=== PATIENT | male | born 1965 | race Caucasian/White ===

== ENCOUNTER → 2018-08-01 17:41 | Outpatient (CLI) | payer OTHER, SELFPAY ==
--- NOTE | 2018-08-01 17:52 | EKG12_ITS ---
Test Reason : PREOP Blood Pressure : / mmHG Vent. Rate : 057 BPM Atrial Rate : 057 BPM P-R Int : 146 ms QRS Dur : 092 ms QT Int : 420 ms P-R-T Axes : 074 073 062 degrees QTc Int : 408 ms Sinus bradycardia Incomplete right bundle branch block Borderline ECG No previous ECGs available Confirmed by WING BASURTO, ADRIANA ([id number]), graphics editor CHINYERE MCMAHON ([id number]) on 08/02/2018 10:34:36 AM Referred By: Cy Bautista Confirmed By:ADRIANA DIMAS MD
== END ==
PROVIDERS: Family Provider Family Medicine; PCP Family Medicine; Referring Provider Otolaryngology; Visit Provider Otolaryngology
DX: Z01.812 Encounter for preprocedural laboratory examination (principal)
CPT/HCPCS: 93005

== ENCOUNTER → 2018-08-06 15:13 | Outpatient (CLI) | payer OTHER, SELFPAY ==
--- NOTE | 2018-08-05 | UV_PTH ---
PATIENT: TAWNY WHELAN LOC: [facility] U#:[id number] AGE/SX: 60/M ROOM: RE08/06/[address]: Dr. Cy Bautista MD : [id number] BED: DIS: SPEC #: [id number] RECD: 08/06/18 15:13 STATUS: EDIL STEVE #: [id number] FARZAD: 08/05/18 00:[address]: Cy Bautista DEPT: SURGICAL PATHOLOGY RECD BY: Carlos Ko ENTERED: 08/07/18 08:43 SP TYPE: UVULA ZURDO DR: Dr. Finesse Braun MD [facility] Tissues: Uvula palatina Procedures: Surgery Specimen Level III HEADER OPERATION: Uvulectomy PRE-OP DIAGNOSIS: Uvula hypertrophy TISSUE SUBMITTED: Uvula MICROSCOPIC DIAGNOSIS Uvula, uvulectomy: Uvula, no pathologic diagnosis, clinically hypertrophy. SJ:jose 08/08/18 MICROSCOPIC DESCRIPTION Slides are reviewed. GROSS DESCRIPTION Received in fixative is one container labeled with the patient's name and designated uvula. The specimen consists of a conical piece of betancur mucosal tissue measuring 2.5 x 1 x 0.5 cm. The specimen is inked, bisected and submitted entirely in one cassette. / SJ:rg 08/07/18 TC:5 CPT: 64636
--- OUTSIDE RECORDS SUMMARY | 2018-09-22 23:01 | XMS RPT_ITS ---
:1965 Author Organization OHIP Care Team Providers Name Role Phone DARWIN MCKEON Attending Unavailable DARWIN MCKEON Referring Unavailable Cy Bautista Attending Unavailable Cy Bautista Referring Unavailable Darwin Mckeon Primary Care Unavailable Cy Bautista Attending Unavailable Cy Bautista Referring Unavailable Darwin Mckeon Primary Care Unavailable Luiz Escudero Attending Unavailable Cy Bautista Referring Unavailable PROBLEMS PROBLEMS DATE TYPE CONDITION / CODE ATTENDING STATUS SOURCE 08/09/2018 Unknown R00.1 - Bradycardia, Luiz Escudero Active [facility] unspecified / Community R00.1(ICD-10) Hospital Repository 01/10/2018 Active Encounter for Active [place] screening for [facility] malignant neoplasm [place] of prostate / Repository Z12.5(ICD-10) 01/10/2018 Active Encounter for Active [place] screening for [facility] diabetes mellitus / [place] Z13.1(ICD-10) Repository 01/10/2018 Active Encounter for Active [place] screening for [facility] cardiovascular [place] disorders / Repository Z13.6(ICD-10) 01/10/2018 Active Encounter for Active [facility] adult [facility] medical examination [place] without abnormal Repository findings / Z00.00(ICD-10) PROCEDURES PROCEDURES No Procedure Records FoundRESULTS RESULTS UVULA Observed: 08/05/2018 Status: F Source: [place] 12:00 AM [facility] REPOSITORY Patient: TAWNY WHELAN : 1965 (53/M) Acct Num: [id number] Phys: Cy Bautista MD Unit Num: [id number] Loc: LABSPEC Specimen: [id number] Received: 08/06/18 151 Spec Type: UVULA TISSUES 1 TISSUES: Uvula palatina GROSS DESCRIPTION Received in fixative is one container labeled with the patient's name and designated uvula. The specimen consists of a conical piece of betancur mucosal tissue measuring 2.5 x 1 x 0.5 cm. The specimen is inked, bisected and submitted entirely in one cassette. / SJ:jose 08/07/18 TC:5 CPT: 69088 HEADER OPERATION: Uvulectomy PRE-OP DIAGNOSIS: Uvula hypertrophy TISSUE SUBMITTED: Uvula MICROSCOPIC DESCRIPTION Slides are reviewed. MICROSCOPIC DIAGNOSIS Uvula, uvulectomy: Uvula, no pathologic diagnosis, clinically hypertrophy. SJ:jose 08/08/18 Signed Robert Conroy 08/08/18 <signature on file> Performed By: #### PUV #### [facility] [address] [place], [address] 12 LEAD ELECTROCARDIOGRAM Observed: 08/02/2018 Status: F Source: [place] 10:35 AM [facility] REPOSITORY [facility] Cardiovascular Services [address] [place] [address] 12 Lead EKG 08/01/18 1757 MR#: [id number] Acct: [id number] Name: TAWNY WHELAN Rep #: [id number] : 1965 53 From: Luiz Escudero MD Attending Dr: Cy Bautista MD Status: REG CLI Ordering Dr: Cy Bautista MD Date: 08/01/18 Location: [facility] Sex: M C Admitted: Test Reason : PREOP Blood Pressure : / mmHG Vent. Rate : 057 BPM Atrial Rate : 057 BPM P-R Int : 146 ms QRS Dur : 092 ms QT Int : 420 ms P-R-T Axes : 074 073 062 degrees QTc Int : 408 ms Sinus bradycardia Incomplete right bundle branch block Borderline ECG No previous ECGs available Confirmed by LUIZ ESCUDERO MD ([id number]), news videotape editor CHINYERE MCMAHON ([id number]) on 08/02/2018 10:34:36 AM Referred By: Cy Bautista Confirmed By:LUIZ ESCUDERO MD 08/02/18 1034 Date Luiz Escudero MD CC: Darwin Mckeon MD; Cy Bautista MD Signed PROGRESS Observed: 04/09/2018 Status: COMPLETED Source: [place] 5:56 PM [facility] REPOSITORY HNO ID: [id number] [facility]: [facility] Service: (none) Author Type: Nurse Practitioner Type: Progress Notes Filed: 04/09/2018 10:19 PM Note Text: Subjective HPI Tawny Whelan is a 53 year old male who presents with left lower back pain for the past 22 years. He states 2 days ago he unloaded some dirt from his pickup truck and has had worse pain the last 2 days. He states he typically has this occur once a year and in the past he has taken muscle relaxant medication and it seems to help. He rates his pain a 6/10 and states it is worse when he tries to lift his left leg into the car. He took ibuprofen at home which did not seem to help. He denies radiation of pain. He also expresses concern over his uvula which is larger and longer than normal. He has seen ENT for this who wanted to remove it surgically but his insurance would not pay for it. He is concerned he may have cancer and would like further testing done. He states the uvula makes him feel like he always has something stuck in his throat. Review of Systems Constitutional: Negative. Negative for fever. HENT: Negative for sore throat. Respiratory: Negative. Negative for cough and stridor. Cardiovascular: Negative. Genitourinary: Negative. Negative for dysuria, frequency and urgency. Skin: Negative. Negative for rash. BP 130/82 Pulse (!) 56 Temp 36.1 ?C (97 ?F) (Tympanic) Resp 16 Wt 77.1 kg (170 lb) BMI 23.06 kg/m? 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 citalopram (CELEXA) 20 mg tablet TAKE 1 TABLET ONCE DAILY FAMILY HISTORY Problem Relation Age of Onset - Heart Maternal Grandmother ID - Hypertension Mother - Lipids Mother - Lipids Brother - Heart Maternal Grandfather ID, open heart surgery - Heart Father stent placement - Stroke Maternal Grandmother - Diabetes Mother Social History Substance Use Topics - Smoking status: Never Smoker - Smokeless tobacco: Never Used - Alcohol use 1.5 oz/week 1 Cans of Beer (12oz) per week Objective Physical Exam Constitutional: He is well-developed, well-nourished, and in no distress. Cardiovascular: Normal rate, regular rhythm and normal heart sounds. Pulmonary/Chest: Effort normal and breath sounds normal. No stridor. No respiratory distress. He has no wheezes. Musculoskeletal: Lumbar back: He exhibits decreased range of motion, pain and spasm. He exhibits no tenderness, no bony tenderness, no swelling, no edema, no deformity and no laceration. Back: Lymphadenopathy: He has no cervical adenopathy. Neurological: He is alert. He has normal motor skills, normal strength and normal reflexes. He displays no weakness. Gait normal. Gait normal. Reflex Scores: Patellar reflexes are 2+ on the right side and 2+ on the left side. Skin: Skin is warm and dry. No rash noted. No erythema. Nursing note and vitals reviewed. ASSESSMENT/PLAN: 1. Acute left-sided low back pain without sciatica - ICD9: 724.2, ICD10: M54.5 (primary diagnosis) Lumbosacral sprain - Ice for localized tenderness - Medrol dose pack - Muscle relaxant- see orders - METHYLPREDNISOLONE 4 MG TABLETS IN A DOSE PACK - CYCLOBENZAPRINE 5 MG TABLET 2. Elongated uvula, acquired - ICD9: 528.9, ICD10: K13.79 - CONSULT TO ENT - Follow-up with your PCP in 3-5 days if symptoms have not improved or sooner if symptoms worsen - Discussed red flags and need for immediate medical evaluation if any occur. - Discussed supportive care treatment with fluids, rest and analgesia. - Discussed expected course of illness Alyssa Ramos APRN.CNP CNOV Observed: 04/09/2018 Status: COMPLETED Source: [place] 5:45 PM [facility] REPOSITORY Office Visit ([facility]) TAWNY WHELAN ([id number]) 1965 M Date Time Provider Department 04/09/18 5:45 PM ALYSSA RAMOS ([facility]) [facility] During your visit today, we recorded the following information about you: Temperature Pulse Respiration Blood pressure 97 degrees 56/minute 16/minute 130/82 Weight 77.1 kg Aylssa Ramos APRN.CNP 04/09/2018 10:19 PM Signed Subjective HPI Tawny Whelan is a 53 year old male who presents with left lower back pain for the past 22 years. He states 2 days ago he unloaded some dirt from his pickup truck and has had worse pain the last 2 days. He states he typically has this occur once a year and in the past he has taken muscle relaxant medication and it seems to help. He rates his pain a 6/10 and states it is worse when he tries to lift his left leg into the car. He took ibuprofen at home which did not seem to help. He denies radiation of pain. He also expresses concern over his uvula which is larger and longer than normal. He has seen ENT for this who wanted to remove it surgically but his insurance would not pay for it. He is concerned he may have cancer and would like further testing done. He states the uvula makes him feel like he always has something stuck in his throat. Review of Systems Constitutional: Negative. Negative for fever. HENT: Negative for sore throat. Respiratory: Negative. Negative for cough and stridor. Cardiovascular: Negative. Genitourinary: Negative. Negative for dysuria, frequency and urgency. Skin: Negative. Negative for rash. BP 130/82 Pulse (!) 56 Temp 36.1 ?C (97 ?F) (Tympanic) Resp 16 Wt 77.1 kg (170 lb) BMI 23.06 kg/m? PAST MEDICAL HISTORY Diagnosis Date - Veliz's palsy - Depression 05/15/2011 PAST SURGICAL HISTORY Procedure Laterality Date - COLONOSCOP W/ OR W/O BRSH SPEC 03/29/15 Colonoscopy - REPAIR RETINAL DETACH, C 04/07 ALLERGIES Aacufobp-Vbrlrfiucme-Ddllirzpj MEDICATIONS esomeprazole magnesium (NEXIUM ORAL) Take by mouth. citalopram (CELEXA) 20 mg tablet TAKE 1 TABLET ONCE DAILY FAMILY HISTORY Problem Relation Age of Onset - Heart Maternal Grandmother ID - Hypertension Mother - Lipids Mother - Lipids Brother - Heart Maternal Grandfather ID, open heart surgery - Heart Father stent placement - Stroke Maternal Grandmother - Diabetes Mother Social History Substance Use Topics - Smoking status: Never Smoker - Smokeless tobacco: Never Used - Alcohol use 1.5 oz/week 1 Cans of Beer (12oz) per week Objective Physical Exam Constitutional: He is well-developed, well-nourished, and in no distress. Cardiovascular: Normal rate, regular rhythm and normal heart sounds. Pulmonary/Chest: Effort normal and breath sounds normal. No stridor. No respiratory distress. He has no wheezes. Musculoskeletal: Lumbar back: He exhibits decreased range of motion, pain and spasm. He exhibits no tenderness, no bony tenderness, no swelling, no edema, no deformity and no laceration. Back: Lymphadenopathy: He has no cervical adenopathy. Neurological: He is alert. He has normal motor skills, normal strength and normal reflexes. He displays no weakness. Gait normal. Gait normal. Reflex Scores: Patellar reflexes are 2+ on the right side and 2+ on the left side. Skin: Skin is warm and dry. No rash noted. No erythema. Nursing note and vitals reviewed. ASSESSMENT/PLAN: 1. Acute left-sided low back pain without sciatica - ICD9: 724.2, ICD10: M54.5 (primary diagnosis) Lumbosacral sprain - Ice for localized tenderness - Medrol dose pack - Muscle relaxant- see orders - METHYLPREDNISOLONE 4 MG TABLETS IN A DOSE PACK - CYCLOBENZAPRINE 5 MG TABLET 2. Elongated uvula, acquired - ICD9: 528.9, ICD10: K13.79 - CONSULT TO ENT - Follow-up with your PCP in 3-5 days if symptoms have not improved or sooner if symptoms worsen - Discussed red flags and need for immediate medical evaluation if any occur. - Discussed supportive care treatment with fluids, rest and analgesia. - Discussed expected course of illness LAI More APRN.CNP 04/09/2018 6:18 PM Signed Recommend you see the ENT for a recheck- ask him if there is any other testing that may be done to rule out any other abnormalities. (CT scan, etc). EMERGENCY DEPARTMENT LOW BACK PAIN GENERAL INFORMATION: Low back pain is located in the small of the back. The pain may be related to sprained muscles or ligaments, to muscle spasms, or to herniation of a spinal disc. There are many possible causes of back pain, but the most common causes are gradual wear and tear, physical and emotional stress, and weak or tense muscles from lack of proper exercise. The pain can develop quickly or overnight and may be caused by unusual exertion such as moving furniture or heavy lifting. Low back pain can be severe, and sometimes you may be unable to move without pain. INSTRUCTIONS: 1. During the first 24 hours, apply ice packs to your back for 10-20 minutes 3 to 4 times a day. Put the ice in a plastic bag and place a towel between the bag of ice and your skin. After 24 hours, apply heat to your back with a heating pad set on low or a warm water bottle for 30 minutes every 3 to 4 hours. A gentle massage and warm showers may also be helpful. 2. Stay in bed for 1 to 2 days. Then begin normal activities as you can tolerate without causing pain. 3. Bend at the hips and knees; never bend from the waist only. Lift with your legs, not your back. 4. Sleep on a firm mattress or put a ? to 1 inch piece of plywood between the mattress and box springs. Do not use a waterbed because it does not support your back correctly. Sleep with a pillow under your knees or sleep on your side with your knees bent. 5. Wear low-heeled shoes. 6. If you are overweight, losing weight will help prevent another attack. 7. Begin a program of back exercises to prevent future episodes of pain. Walking, swimming, and bicycling are good exercise. Avoid exercises that put stress on the back, such as rowing and jogging. CONTACT YOUR DOCTOR OR RETURN TO THE ED IF: 1. You have shooting pains into your buttocks, groin, or legs. 2. You have difficulty urinating or lose control of bowel or bladder function. 3. You have numbness or weakness in your legs or feet. Referring Provider: SELF [200] Allergies As of Date: 04/09/2018 Noted Allergy Reaction [id number] 07/01/2005 Date Reviewed: 04/09/2018 Reviewed by: Alyssa ([facility]) Richard - Fully Assessed Reason for Visit: Back Pain [12] Cmt: low back pain, left side X 3 days Primary Visit Diagnosis:Acute left-sided low back pain without sciatica [M54.5] Other Visit Diagnosis:Elongated uvula, acquired [K13.79] Order(s):methylPREDNISolone (MEDROL, BAO,) 4 mg Dose-PackFollow dosing instructions, take with food.Disp: 1 PackageRfl: 0 cyclobenzaprine (FLEXERIL) 5 mg tabletTake 1 tablet by mouth three times daily as needed for Muscle Spasm.Disp: 20 tabletRfl: 0 CONSULT TO ENT [9008] Order #: [id number]: 1 Prescriptions as of 04/09/2018 Sig: NEXIUM ORAL Take by mouth. METHYLPREDNISOLONE 4 MG TABLE* Follow dosing instructions, t* CYCLOBENZAPRINE 5 MG TABLET Take 1 tablet by mouth three * CITALOPRAM 20 MG TABLET TAKE 1 TABLET ONCE DAILY Patient not taking: Reported on 04/09/2018 Problem List As Of Date 04/09/2018 Noted Resolved SPRAIN OF BACK NOS [[id number]] INVALID FOR*11/06/2006 History of Veliz's palsy [Z86.69] INVALID FOR* Priority: B More... ROTATOR CUFF DIS NEC [M75.100] INVALID FOR*12/23/2008 Depression [F32.9] INVALID FOR* Priority: A Well adult exam [Z00.00] INVALID FOR* Priority: E More... Encounter for screening for cardiovascular diso*INVALID FOR* Screening for diabetes mellitus [Z13.1] INVALID FOR* Screening for prostate cancer [Z12.5] INVALID FOR* Other instructions from your clinician: Recommend you see the ENT for a recheck- ask him if there is any other testing that may be done to rule out any other abnormalities. (CT scan, etc). EMERGENCY DEPARTMENT LOW BACK PAIN GENERAL INFORMATION: Low back pain is located in the small of the back. The pain may be related to sprained muscles or ligaments, to muscle spasms, or to herniation of a spinal disc. There are many possible causes of back pain, but the most common causes are gradual wear and tear, physical and emotional stress, and weak or tense muscles from lack of proper exercise. The pain can develop quickly or overnight and may be caused by unusual exertion such as moving furniture or heavy lifting. Low back pain can be severe, and sometimes you may be unable to move without pain. INSTRUCTIONS: 1. During the first 24 hours, apply ice packs to your back for 10-20 minutes 3 to 4 times a day. Put the ice in a plastic bag and place a towel between the bag of ice and your skin. After 24 hours, apply heat to your back with a heating pad set on low or a warm water bottle for 30 minutes every 3 to 4 hours. A gentle massage and warm showers may also be helpful. 2. Stay in bed for 1 to 2 days. Then begin normal activities as you can tolerate without causing pain. 3. Bend at the hips and knees; never bend from the waist only. Lift with your legs, not your back. 4. Sleep on a firm mattress or put a ? to 1 inch piece of plywood between the mattress and box springs. Do not use a waterbed because it does not support your back correctly. Sleep with a pillow under your knees or sleep on your side with your knees bent. 5. Wear low-heeled shoes. 6. If you are overweight, losing weight will help prevent another attack. 7. Begin a program of back exercises to prevent future episodes of pain. Walking, swimming, and bicycling are good exercise. Avoid exercises that put stress on the back, such as rowing and jogging. CONTACT YOUR DOCTOR OR RETURN TO THE ED IF: 1. You have shooting pains into your buttocks, groin, or legs. 2. You have difficulty urinating or lose control of bowel or bladder function. 3. You have numbness or weakness in your legs or feet. Prescriptions ordered this encounter Disp Refills Start End METHYLPREDNISOLONE 4 MG TABLETS IN A* 1 Pa* 0 04/09/2018 04/15/2018 Sig: Follow dosing instructions, take with food. CYCLOBENZAPRINE 5 MG TABLET 20 t* 0 04/09/2018 Route: ORAL Sig: Take 1 tablet by mouth three times daily as needed for Muscle Spasm. Encounter Status:Closed by ALYSSA RAMOS on 04/09/18 GLUCOSE, FASTING Collected: 01/14/2018 Status: F Source: [place] 7:36 AM [facility] REPOSITORY TYPE CODE TESTS RESULT OUT OF REFERENCE UNITS RANGE LAB GLF 74-99 mg/dL Glucose, 83 Fasting Result Comment: [place] Diabetes Association guidelines state that a diabetes mellitus diagnosis is preliminarily made when the fasting plasma glucose meets or exceeds 126 mg/dL. In the absence of unequivocal hyperglycemia, results should be confirmed with repeat testing. Patients are at increased risk for diabetes mellitus (prediabetes) when the fasting glucose is 100 to 125 mg/dL. Performed By: #### GLF #### [facility] [employer] [facility] [address] [place], [place] [id number] HEMOGLOBIN A1C Collected: 01/14/2018 Status: F Source: [place] 7:36 AM [facility] REPOSITORY TYPE CODE TESTS RESULT OUT OF REFERENCE UNITS RANGE LAB HGBA1C 4.3-5.6 % Hemoglobin A1c 5.2 LAB HBA0 mg/dL Est. Average Glucose 103 Result Comment: eAG: (Estimated average glucose) is a calculated value from HgbA1c and is petroleum products sales representative of the average blood glucose level in the last 2-3 month period. Performed By: #### HBA1C, LIPB, PSA #### [facility] [employer] [facility] [address] [place], [place] [id number] LIPID PANEL, BASIC Collected: 01/14/2018 Status: F Source: [place] 7:36 AM [facility] REPOSITORY TYPE CODE TESTS RESULT OUT OF REFERENCE UNITS RANGE LAB CHOL <200 mg/dL Cholesterol 165 Result Comment: <200 mg/dL, Desirable 200-239 mg/dL, Borderline high >239 mg/dL, High LAB TRIGLY <150 mg/dL Triglyceride 70 Result Comment: <150 mg/dL, Normal 150-199 mg/dL, Borderline high 200-499 mg/dL, High >499 mg/dL, Very high LAB HDL >39 mg/dL HDL-Cholesterol 50 Result Comment: 40-59 mg/dL, Acceptable >59 mg/dL, High: Negative risk factor for coronary heart disease <40 mg/dL, Low: Positive risk factor for coronary heart disease LAB LDL <100 mg/dL LDL-Cholesterol High 101 Result Comment: <100 mg/dL, Optimal 100-129 mg/dL, Near optimal/above optimal 130-159 mg/dL, Borderline high 160-189 mg/dL, High >189 mg/dL, Very high Secondary prevention optimal LDL Cholesterol levels are recommended to be < 70 mg/dL LAB NONHDL <130 mg/dL Non HDL Cholesterol 115 Result Comment: <130 mg/dL, Optimal 130-159 mg/dL, Near optimal/above optimal 160-189 mg/dL, Borderline high 190-219 mg/dL, High >219 mg/dL, Very high Secondary prevention optimal non HDL Cholesterol levels are recommended to be < 100 mg/dL LAB FT hrs Fasting Time 10 LAB VLDL <30 mg/dL VLDL Cholesterol 14 LAB TCHDL <5.10 TC:HDL Ratio 3.30 LAB LDLHDL <2.54 LDL:HDL Ratio 2.02 Result Comment: Reference: 1. National Cholesterol Education Program ATP III Guideline At-A-Glance Quick Desk Reference: National Heart, Lung, and Blood [place]. National Institutes of Health. 2001: NIH Publication No. 01-3305. 2. An International Atherosclerosis Society position paper: global recommendations for the management of dyslipidemia: executive summary, Atherosclerosis. 2014: 232(2):410-413. Performed By: #### HBA1C, LIPB, PSA #### [facility] [address] [place], [place] [address] PSA, DIAGNOSTIC Collected: 01/14/2018 Status: F Source: [place] 7:36 AM [facility] REPOSITORY TYPE CODE TESTS RESULT OUT OF REFERENCE UNITS RANGE LAB PSA 0.00-2.59 ng/mL PSA, Diagnostic 0.58 Result Comment: Total PSA test methodology used is the Electrochemiluminescence Immunoassay. Performed By: #### HBA1C, LIPB, PSA #### [facility] [address] [place], [place] [address] PROGRESS Observed: 01/10/2018 Status: COMPLETED Source: [place] 3:22 PM [facility] REPOSITORY HNO ID: [id number] Author: Darwin Mckeon Service: (none) Author Type: Physician Type: Progress Notes Filed: 01/10/2018 9:24 PM Note Text: Chief Complaint Patient presents with: Physical HPI Tawny Whelan is a 52 year old male who presents here today for establishment of care and WAE. Patient with Hx as documented and reviewed below. Has been on Celexa for over 10 yrs and not sure if needing it any longer. Has never been tried off it. Past medical history, appointments, medications, allergies reviewed. 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 Previous Surgical History PAST SURGICAL HISTORY Procedure Laterality Date - COLONOSCOP W/ OR W/O BRSH SPEC 03/29/15 Colonoscopy - REPAIR RETINAL DETACH, C 04/07 Family History FAMILY HISTORY Problem Relation Age of Onset - Heart Maternal Grandmother ID - Hypertension Mother - Lipids Mother - Lipids Brother - Heart Maternal Grandfather ID, open heart surgery - Heart Father stent placement - Stroke Maternal Grandmother - Diabetes Mother Patient Allergies ALLERGIES Allergen Reactions - Amoxicil-Clarithrom* Current Medications Current Outpatient Prescriptions on File Prior to Visit: citalopram (CELEXA) 20 mg tablet TAKE 1 TABLET ONCE DAILY No current facility-administered medications on file prior to visit. Social History Social History Marital status: Spouse name: Years of education: Number of children: 2 Occupational History Occupation [employer]er Comment [employer] Social History Main Topics Smoking status: Never Smoker Smokeless tobacco: Never Used Alcohol use: Yes 1.5 oz/week Cans of Beer (12oz): 1 per week Drug use: No Sexual activity: Yes Partners with: Female Review of Symptoms REVIEW OF SYSTEMS GENERAL: No weight loss, malaise or fevers HEENT: Negative for frequent or significant headaches, significant change in vision, significant vision problems, significant ear problems or hearing loss, nasal discharge, or nose bleeds, sore throat, difficulty swallowing, mouth lesions, hoarseness. Has an enlarged uvula. Did see Dr. Bautista and has been placed on PPI in the fall 2017. NECK: Negative for lumps, goiter, pain and significant neck swelling RESPIRATORY: Negative for cough, hemoptysis, wheezing, COPD, dyspnea or shortness of breath CARDIOVASCULAR: Negative for chest pain, leg swelling, hypertension, CHF or palpitations GI: No nausea, vomiting, or diarrhea, No heartburn or reflux symptoms and no blood : No history of dysuria or blood MUSCULOSKELETAL: Negative for joint pain or swelling, back pain or muscle pain SKIN: Negative for lesions, rash, and itching PSYCH: Negative for sleep disturbance, mood disorder and recent psychosocial stressors. Does admit to worrying Easily. HEMATOLOGY/LYMPHOLOGY: Negative for prolonged bleeding, bruising easily or swollen nodes ENDOCRINE: Negative for cold or heat intolerance, polyuria, polydipsia and goiter NEURO: No history of headaches, syncope, paralysis, seizures or tremors EXAM: BP 118/84 Pulse 60 Temp 36.4 ?C (97.5 ?F) (Right Tympanic) Resp 12 Ht 182.9 cm (6') Wt 77.2 kg (170 lb 3.2 oz) BMI 23.08 kg/m? General Appearance: Well appearing, alert, in no acute distress, well-hydrated, well nourished.. Skin: Skin color, texture, turgor normal, no suspicious rashes or lesions. Head: Normocephalic, no masses, lesions, tenderness or abnormalities. Eyes: Anicteric sclera. Pupils are equally round and reactive to light. Extraocular movements are intact. . Ears: External ears normal, canals clear. Nose/Sinuses: Nares normal, septum midline, mucosa normal, no drainage or sinus tenderness. Oropharynx: Lips, mucosa, and tongue normal, teeth and gums normal, oropharynx normal. Neck: Supple, no adenopathy; thyroid symmetric, normal size, no bruits. Lungs: Lungs clear to auscultation. No wheezing, rhonchi, rales. Heart: RRR without murmur, gallop, or rubs. No ectopy. Abdomen: Normal abdominal exam, Abdomen soft, non-tender. Bowel sounds normal. No masses, organomegaly. Extremities: No deformities, edema, skin discoloration. Musculoskeletal: Spine range of motion normal. Muscular strength intact, No joint swelling, deformity, or tenderness. Peripheral Pulses: Normal. Neurologic: Gait normal. Reflexes normal and symmetric. Sensation to light touch and crainal nerves 2-12 intact.. Genitalia: Normal, Penis normal. No urethral discharge. Scrotum normal to palpation. No hernia. . Rectal: Normal exam. Health Maintenance List HEPATITIS C SCREENING due on 2009 INFLUENZA(Season Ended) due on 04/27/2018 DIABETES SCREEN due on 10/16/2018 LIPID SCREEN due on 10/16/2020 DTAP,TDAP,TD(3 - Td) due on 11/13/2021 COLORECTAL CANCER SCREENING,SEE MODIFIER due on 03/29/2025 PROSTATE CANCER SCREENING DISCUSSION Completed Data reviewed A/P ASSESSMENT/PLAN: 1. Well adult exam - ICD9: V70.0, ICD10: Z00.00 (primary diagnosis) - Completed Digital Rectal exam - Recommended regular aerobic exercise. - Follow up for annual exam in one year. - GLUCOSE FASTING BLD - HGB A1C - LIPID PANEL BASIC - PSA/PROSTSPECAG DIAG 2. Depression, unspecified depression type - ICD9: 311, ICD10: F32.9 - Discussed trying to wean off the celexa and instructions given 3. Encounter for screening for cardiovascular disorders - ICD9: V81.2, ICD10: Z13.6 Check - LIPID PANEL BASIC 4. Screening for diabetes mellitus - ICD9: V77.1, ICD10: Z13.1 check - GLUCOSE FASTING BLD - HGB A1C 5. Screening for prostate cancer - ICD9: V76.44, ICD10: Z12.5 check - PSA/PROSTSPECAG DIAG f/u [facility] one year. Darwin Mckeon MD CNOV Observed: 01/10/2018 Status: COMPLETED Source: [place] 3:00 PM [facility] REPOSITORY Office Visit (FAMPWS) TAWNY WHELAN ([id number]) 1965 M Date Time Provider Department 5/17/18 3:00 PM DARWIN MCKEON During your visit today, we recorded the following information about you: Temperature Pulse Respiration Blood pressure 97.5 degrees 60/minute 12/minute 118/84 Weight Height 77.2 kg 1.829 m Darwin Mckeon MD 01/10/2018 9:24 PM Signed Chief Complaint Patient presents with: Physical HPI Tawny Whelan is a 52 year old male who presents here today for establishment of care and WAE. Patient with Hx as documented and reviewed below. Has been on Celexa for over 10 yrs and not sure if needing it any longer. Has never been tried off it. Past medical history, appointments, medications, allergies reviewed. 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 Previous Surgical History PAST SURGICAL HISTORY Procedure Laterality Date - COLONOSCOP W/ OR W/O BRSH SPEC 03/29/15 Colonoscopy - REPAIR RETINAL DETACH, C 04/07 Family History FAMILY HISTORY Problem Relation Age of Onset - Heart Maternal Grandmother ID - Hypertension Mother - Lipids Mother - Lipids Brother - Heart Maternal Grandfather ID, open heart surgery - Heart Father stent placement - Stroke Maternal Grandmother - Diabetes Mother Patient Allergies ALLERGIES Allergen Reactions - Amoxicil-Clarithrom* Current Medications Current Outpatient Prescriptions on File Prior to Visit: citalopram (CELEXA) 20 mg tablet TAKE 1 TABLET ONCE DAILY No current facility-administered medications on file prior to visit. Social History Social History Marital status: Spouse name: Years of education: Number of children: 2 Occupational History Occupation Employer Comment [employer] Social History Main Topics Smoking status: Never Smoker Smokeless tobacco: Never Used Alcohol use: Yes 1.5 oz/week Cans of Beer (12oz): 1 per week Drug use: No Sexual activity: Yes Partners with: Female Review of Symptoms REVIEW OF SYSTEMS GENERAL: No weight loss, malaise or fevers HEENT: Negative for frequent or significant headaches, significant change in vision, significant vision problems, significant ear problems or hearing loss, nasal discharge, or nose bleeds, sore throat, difficulty swallowing, mouth lesions, hoarseness. Has an enlarged uvula. Did see Dr. Bautista and has been placed on PPI in the fall 2016. NECK: Negative for lumps, goiter, pain and significant neck swelling RESPIRATORY: Negative for cough, hemoptysis, wheezing, COPD, dyspnea or shortness of breath CARDIOVASCULAR: Negative for chest pain, leg swelling, hypertension, CHF or palpitations GI: No nausea, vomiting, or diarrhea, No heartburn or reflux symptoms and no blood : No history of dysuria or blood MUSCULOSKELETAL: Negative for joint pain or swelling, back pain or muscle pain SKIN: Negative for lesions, rash, and itching PSYCH: Negative for sleep disturbance, mood disorder and recent psychosocial stressors. Does admit to worrying Easily. HEMATOLOGY/LYMPHOLOGY: Negative for prolonged bleeding, bruising easily or swollen nodes ENDOCRINE: Negative for cold or heat intolerance, polyuria, polydipsia and goiter NEURO: No history of headaches, syncope, paralysis, seizures or tremors EXAM: BP 118/84 Pulse 60 Temp 36.4 ?C (97.5 ?F) (Right Tympanic) Resp 12 Ht 182.9 cm (6') Wt 77.2 kg (170 lb 3.2 oz) BMI 23.08 kg/m? General Appearance: Well appearing, alert, in no acute distress, well-hydrated, well nourished.. Skin: Skin color, texture, turgor normal, no suspicious rashes or lesions. Head: Normocephalic, no masses, lesions, tenderness or abnormalities. Eyes: Anicteric sclera. Pupils are equally round and reactive to light. Extraocular movements are intact. . Ears: External ears normal, canals clear. Nose/Sinuses: Nares normal, septum midline, mucosa normal, no drainage or sinus tenderness. Oropharynx: Lips, mucosa, and tongue normal, teeth and gums normal, oropharynx normal. Neck: Supple, no adenopathy; thyroid symmetric, normal size, no bruits. Lungs: Lungs clear to auscultation. No wheezing, rhonchi, rales. Heart: RRR without murmur, gallop, or rubs. No ectopy. Abdomen: Normal abdominal exam, Abdomen soft, non-tender. Bowel sounds normal. No masses, organomegaly. Extremities: No deformities, edema, skin discoloration. Musculoskeletal: Spine range of motion normal. Muscular strength intact, No joint swelling, deformity, or tenderness. Peripheral Pulses: Normal. Neurologic: Gait normal. Reflexes normal and symmetric. Sensation to light touch and crainal nerves 2-12 intact.. Genitalia: Normal, Penis normal. No urethral discharge. Scrotum normal to palpation. No hernia. . Rectal: Normal exam. Health Maintenance List HEPATITIS C SCREENING due on 2009 INFLUENZA(Season Ended) due on 04/27/2018 DIABETES SCREEN due on 10/16/2018 LIPID SCREEN due on 10/16/2020 DTAP,TDAP,TD(3 - Td) due on 11/13/2021 COLORECTAL CANCER SCREENING,SEE MODIFIER due on 03/29/2025 PROSTATE CANCER SCREENING DISCUSSION Completed Data reviewed A/P ASSESSMENT/PLAN: 1. Well adult exam - ICD9: V70.0, ICD10: Z00.00 (primary diagnosis) - Completed Digital Rectal exam - Recommended regular aerobic exercise. - Follow up for annual exam in one year. - GLUCOSE FASTING BLD - HGB A1C - LIPID PANEL BASIC - PSA/PROSTSPECAG DIAG 2. Depression, unspecified depression type - ICD9: 311, ICD10: F32.9 - Discussed trying to wean off the celexa and instructions given 3. Encounter for screening for cardiovascular disorders - ICD9: V81.2, ICD10: Z13.6 Check - LIPID PANEL BASIC 4. Screening for diabetes mellitus - ICD9: V77.1, ICD10: Z13.1 check - GLUCOSE FASTING BLD - HGB A1C 5. Screening for prostate cancer - ICD9: V76.44, ICD10: Z12.5 check - PSA/PROSTSPECAG DIAG f/u [facility] one year. MD Darwin Rowe MD 01/10/2018 3:50 PM Addendum If you want to try to come off the celexa 20 mg go to taking 1/2 a tab every day for 14 days. If doing well go to taking 1/2 a tab every other day for 7 doses. If still doing ok stop. At any time you notice feeling worse go back to the last affective dose. Please call the office in jun 2018 and schedule a complete physical for on or after 01/10/2019 Referring Provider: SELF [[id number]] Allergies As of Date: 01/10/2018 Noted Allergy Reaction [id number] 07/01/2005 Date Reviewed: 01/10/2018 Reviewed by: Darwin Mckeon - Fully Assessed Reason for Visit: Physical [83] Primary Visit Diagnosis:Well adult exam [Z00.00] Comment:last done: 01/09/2018 Other Visit Diagnoses:Depression, unspecified depression type [F32.9] Encounter for screening for cardiovascular disorders [Z13.6] Screening for diabetes mellitus [Z13.1] Screening for prostate cancer [Z12.5] Order(s):GLUCOSE FASTING BLD [SQGLF] Order #: [id number] FUTURE HGB A1C [WNWEV5E] Order #: [id number] FUTURE LIPID PANEL BASIC [SQLIPB] Order #: [id number] FUTURE PSA/PROSTSPECAG DIAG [SQPSA] Order #: [id number] FUTURE Prescriptions as of 01/10/2018 Sig: CITALOPRAM 20 MG TABLET TAKE 1 TABLET ONCE DAILY Problem List As Of Date 01/10/2018 Noted Resolved SPRAIN OF BACK NOS [BDX6883] INVALID FOR*11/06/2006 History of Veliz's palsy [Z86.69] INVALID FOR* Priority: B More... ROTATOR CUFF DIS NEC [M75.100] INVALID FOR*12/23/2008 Depression [F32.9] INVALID FOR* Priority: A Well adult exam [Z00.00] INVALID FOR* Priority: E More... Encounter for screening for cardiovascular diso*INVALID FOR* Screening for diabetes mellitus [Z13.1] INVALID FOR* Screening for prostate cancer [Z12.5] INVALID FOR* Other instructions from your clinician: If you want to try to come off the celexa 20 mg go to taking 1/2 a tab every day for 14 days. If doing well go to taking 1/2 a tab every other day for 7 doses. If still doing ok stop. At any time you notice feeling worse go back to the last affective dose. Please call the office in jun 2018 and schedule a complete physical for on or after 01/10/2019 Disposition: Return in about 1 year (around 01/10/2019) for complete PE. Follow-up and Disposition History Recorded Encounter Status:Closed by DARWIN MCKEON on 01/10/18 OBSOLETE Observed: 09/19/2017 Status: COMPLETED Source: [place] 12:00 AM [facility] REPOSITORY Refill (FAMPWS) CLEOPATRATAWNY ([id number]) 1965 M Date Time Provider Department 09/19/17 AR GARAYWS During your visit today, we recorded the following information about you: Gabriela Small LPN 09/21/2017 8:39 AM Signed Patient has been identified by name and date of : Yes Pharmacy phones for refill(s): Pending Prescriptions Disp Refills CITALOPRAM 20 MG TABLET 90 tablet 3 Sig: TAKE 1 TABLET ONCE DAILY LYNN: Yes Date of last office visit in primary care: 10/16/16 Patient scheduled to establish on 01/10/18 Last 2 Encounter Wt Readings: Date: Wt: 10/16/2016 78 kg (172 lb) 06/12/2016 77.1 kg (170 lb) Previous labs/tests for medication: Not applicable Please advise. Thank you. Gabriela Mckeon MD 09/21/2017 9:21 AM Signed The following approved medication requests have been transmitted electronically. Signed Prescriptions Disp Refills citalopram (CELEXA) 20 mg tablet 90 tablet 1 Sig: TAKE 1 TABLET ONCE DAILY LYNN: No Authorizing Provider: DARWIN MCKEON MD Allergies As of Date: 09/19/2017 Noted Allergy Reaction [id number] 07/01/2005 Date Reviewed: 10/16/2016 Reviewed by: Marion Broderick Business Test Analyst - Fully Assessed Reason for Visit: Refill Request [94] Order(s):citalopram (CELEXA) 20 mg tabletTAKE 1 TABLET ONCE DAILYDisp: 90 tabletRfl: 1 Prescriptions as of 09/19/2017 Sig: CITALOPRAM 20 MG TABLET TAKE 1 TABLET ONCE DAILY Problem List As Of Date 09/19/2017 Noted Resolved SPRAIN OF BACK NOS [LPB6382] INVALID FOR*11/06/2006 VELIZ'S PALSY [G51.0] INVALID FOR* JOINT PAIN-SHLDER [M25.519] INVALID FOR* ROTATOR CUFF DIS NEC [M75.100] INVALID FOR*12/23/2008 Impacted Cerumen of Both Ears [H61.23] INVALID FOR* Depression [F32.9] INVALID FOR* Lumbar strain [S39.012A] INVALID FOR* Prescriptions ordered this encounter Disp Refills Start End CITALOPRAM 20 MG TABLET 90 t* 1 09/21/2017 Sig: TAKE 1 TABLET ONCE DAILY Medications Discontinued During This Encounter citalopram (CELEXA) 20 mg tablet 90 t* 3 09/25/2016 09/21/2017 Sig: TAKE 1 TABLET ONCE DAILY Disc: Reason for discontinue is not on file. Encounter Status:Closed by DARWIN MCKEON on 09/21/17 ALLERGIES ALLERGIES DATE TYPE / CODE NAME / CODE REACTION SEVERITY SOURCE 07/01/2005 [id number] AMOXICIL-CLA [facility] 03(SNOMED RITHROMY-[facility] CT) SOPRAZ Repository ENCOUNTERS ENCOUNTERS ADMIT/DISCHARGE ACCOUNT ADMITTING ENCOUNTER LOCATION SOURCE NUMBER CLASS 08/06/2018 [id number] [facility] ing:[facility] Repository 08/01/2018 [id number] [facility] ing:[facility] Repository 08/01/2018 [id number] Ambulatory BMSBuilding:[facility] Repository 04/09/2018/04/10/20 [id number] Ambulatory [address] Repository 01/14/2018/01/15/20 [id number] Ambulatory [address] Repository 01/10/2018/01/12/[id number] Repository PAYERS PAYERS ENCOUNTER GUARANTOR PAYER SUBSCRIBER SOURCE 08/06/2018 TAWNY Pinon MARIAM Parada [id number] Insurance:MEDICAL BESANCONDOB: [facility] [id number] Number: Repository [address]Eon: [phone] [id number] [phone] () Date:5818-28-[address], [place] [address]IJ: 08/06/2018 Secondary NOT GIVENUNK Somis Insurance:SELF PAY [facility] Number: Effective Repository Date:2018-08-06 08/01/[address] [facility] MARIAM Parada [id number] Insurance:MEDICAL BESANCONDOB: [facility] [id number] Number: Repository [id number]: 330 [id number] [phone] () Date:[id number] [address]EL: 08/01/2018 Secondary NOT GIVENUNK Tal Insurance:SELF PAY [facility] Number: Effective Repository Date:2018-08-01 08/01/[address] [facility] MARIAM Parada [id number] Insurance:MEDICAL BESANCONDOB: [facility] [id number] Number: Repository [id number]: 330 [id number] [phone] () Date:[id number] [address]CB: 08/01/2018 Secondary NOT GIVENUNK Tal Insurance:SELF PAY [facility] Number: Effective Repository Date:2018-08-01
== END ==
PROVIDERS: Family Provider Family Medicine; PCP Family Medicine; Referring Provider Otolaryngology; Visit Provider Otolaryngology
DX: K13.79 Other lesions of oral mucosa (principal)
CPT/HCPCS: 88304

== ENCOUNTER 2022-12-14 05:54 | Day surgery (SDC) | payer OTHER, SELFPAY ==
--- NOTE | 2022-11-06 12:19 | EKG12_ITS ---
Test Reason : Blood Pressure : / mmHG Vent. Rate : 063 BPM Atrial Rate : 063 BPM P-R Int : 132 ms QRS Dur : 088 ms QT Int : 400 ms P-R-T Axes : 069 054 057 degrees QTc Int : 409 ms Normal sinus rhythm Normal ECG Confirmed by WING BASURTO, ADRIANA ([id number]), department editor BRONWYN BORJAS ([id number]) on 11/07/2022 10:16:22 AM Referred By: SEA Confirmed By:ADRIANA DIMAS MD
--- NOTE | 2022-11-08 10:19 | SUR.PREOP ---
called office about ancef and allergy to pcn- the nurse is checking about this
[2022-12-14] VITALS (9 sets, daily range): BP systolic 116–135; BP diastolic 63–87; PULSE 59–78; RESP 16; TEMP 36.6–37.3; O2SAT 95–100; BMI 23.1
[2022-12-14] MEDS: Lactated Ringers 1,000 ML 15 ML IV ×2 (06:46→11:10)
--- NOTE | 2022-12-14 07:24 | HP.PCM_ITS ---
History and Physical Date of Admission: 12/14/22 Intake Intake Visit Reasons:?Discuss hernia per pt request Chief Complaint: inguinal hernia Is patient in pain?: No Allergies amoxicillin Allergy (Verified 11/22/22 13:00) OtherPenicillins [PCN] Allergy (Verified 11/22/22 13:00) Other Medications citalopram 10 mg tablet 20 mg PO DAILY 10/18/22 [History Confirmed 11/22/22] ascorbic acid (vitamin C) 500 mg tablet (Vitamin C) 500 mg PO DAILY 11/02/22 [History Confirmed 11/22/22] elderberry fruit 350 mg capsule 350 mg PO DAILY 11/02/22 [History Confirmed 11/22/22] PFSH Medical History?(Updated 11/22/22 @ 14:[address] Ramon Ortega MD) Alcohol use Anxiety Arthritis Back pain Veliz's palsy Cancer History of pain when walking History of stress test Migraine headache Non-smoker Peripheral neuropathy Wears glasses Surgical History?(Updated 11/02/22 @ 11:13 by Sofy Cha) History of uvulectomy Hx of colonoscopy Family History?(Updated 10/18/22 @ 15:18 by Autumn Blanton) Mother Diabetes Hypertension Social History Smoking Status:? Never smoker HPI HPI HPI: Patient is a 57-year-old male here to ask a few more questions about his hernia repair.? Patient has a left inguinal hernia and he is scheduled for repair in November.? He had more questions and is very concerned about taking his vacation before his hernia repair. ROS General General: No weight change, appetite, fatigue, colon cancer, breast cancer or weakness HEENT HEENT: Yes eye surgery; No difficulty swallowing, eye injury, swollen glands or hoarseness Endo Endocrine: No thyroid disease, diabetes mellitus, thyroid cancer, Hair loss, heat intolerance or cold intolerance Skin Skin: No rash or changing moles Musc Musculoskeletal: Yes back problems and arthritis; No rheumatoid arthritis, gout or joint pain Cardio Cardiovascular: No murmur, pacemaker, heart disease, atrial fibrillation, high blood pressure, heart attack, heart stent, palpitations, shortness of breat with exertion or chest pain Psych Psychiatric: Yes anxiety; No depression or hearing voices Resp Respiratory: No shortness of breath, No sleep apnea, No cough, No COPD, No asthma, No emphysema and No wheezing Gastro Gastrointestinal: No abdominal pain, No nausea or vomiting, No diarrhea, No constipation, No blood in stool, No acid reflux, No hemorrhoids, No ulcers, No gallbladder problem and No black,tarry stools Anthony Hematologic: No blood thinners, No blood disorders, No bleeding, No anemia and No blood clots Neuro Neurologic: No system reviewed and no additional complaints, except as documented, No as per HPI, No abnormal gait, No abnormal hearing, No abnormal movements, No abnormal speech, No behavioral changes, No burning sensations, No confusion, No convulsions, No disequilibrium, No dizziness, No localized weakness, No frequent falls, No headache(s), No lack of coordination, No loss of vision, No memory loss, No numbness, No other visual disturbances, No radicular pain, No restless legs, No sensory deficit, No syncope, No tingling, No tremor(s), No weakness and No other Exam Const General: cooperative Orientation: alert and oriented x3 HENMT Head: normal to inspection Neck Neck: normal visual inspection and full ROM Chest Chest palpation & inspection: normal inspection of the chest Resp Effort & Inspection: normal respiratory effort Auscultation: clear to auscultation bilaterally Cardio Rate: regular rate Rhythm: regular rhythm GI Inspection: non-distended Palpation: soft, hernia indirect inguinal on the left and nontender Skin General: no rashes or lesions noted Neuro General: patient alert and patient oriented x3 Extrem General: full ROM Psych Appearance: grossly normal Mental Status: mental status grossly normal Assessment and Plan Assessment and Plan (1) Left inguinal hernia: ?Status:?Acute ?Plan: Patient has left inguinal hernia which is reducible.? The patient had further questions about his activity during vacation and if it was safe to take vacation before hernia repair.? He is also very anxious about the surgery itself so I discussed all of this once again with him and I answered all of his questions.? Ramon Ortega MD Pager: [facility] [address] [place] [address], [address] [place] [address] Office: I have examined the patient and the H&P has been reviewed. There are no clinical changes since date of exam.
[2022-12-14] MEDS: Cefazolin 2 GM in 0.9% Normal Saline 100 ML IV (07:47)
[2022-12-14] MEDS: Bupivacaine 0.25% 30 ML Vial OPERA.SITE (08:27)
--- NOTE | 2022-12-14 08:29 | PCM.OPRPT ---
Report of Operation Date of Procedure: 12/14/22 Pre-Operative Diagnosis: Left inguinal hernia Post-Operative Diagnosis: Left direct inguinal hernia Surgery/Procedure Performed:: Robotic assisted laparoscopic left inguinal hernia repair with mesh Description of Procedure: Patient was brought back to the operating room and general anesthesia was induced. The abdomen was prepped and draped in usual sterile fashion. An incision was made superior to the umbilicus and deepened to the fascia. Fascia was grasped and elevated and a Veress needle was placed into the abdomen and a drop test was performed. The abdomen was then insufflated 15 mmHg and the Veress needle was removed. Camera port was placed into the abdomen and then the camera was placed into the abdomen there were no injuries from entry. Next the patient was placed in Trendelenburg position and an 8 mm port was placed in the right lateral abdominal sidewall and in the left lateral abdominal sidewall and then the robot was docked. Patient did not have a hernia on the right side. The left inguinal peritoneum was incised using electrocautery scissors and dissection was carried inferiorly until the hernia sac was identified. The direct hernia was reduced. There did not appear to be any hernia into the indirect space or lipoma in the indirect space. Next a full piece of ProGrip mesh was placed into the left inguinal region and unfolded completely covering the hernia with good overlap. The peritoneum was then reapproximated using a running 3-0V lock suture to completely reapproximate the peritoneum completely covering the mesh of the end of the case. Next the robot was undocked and the ports were removed and the abdomen was allowed to desufflate. The incisions were injected with local anesthetic and closed with interrupted 4-0 Monocryl suture. Steri-Strips and bandages were applied. The scrotum was checked at the end the case and contained both testicles. Patient was brought to PACU in stable condition and tolerated the procedure well. Grafts/Implants Used: ProGrip mesh in the left inguinal region Admit VTE Documentation VTE Mechan Device Prophylaxis: SCD's
--- NOTE | 2022-12-14 08:31 | DCINST_ITS ---
Discharge Instructions Procedure Hernia Diet Discharge Diet: Light diet - advance as tolerated Activity Discharge Activity: May Not Drive (for 2-3 days or while taking narcotic pain meds.) and May Shower (with the bandage in place 1-2 days after surgery.) Lifting Restrictions: 20 pounds for 4 weeks. Additional Activity Instructions:: Climbing stairs is fine, walking is encouraged. Sitting in bed may be uncomfortable. Sitting up using your lateral muscles (sitting up sideways) is usually more comfortable. Do not drive, work heavy equipment of sign legal documents for 24 hours. If your hernia repair was an inguinal repair, you may have scrotal swelling, an ice pack and/or athletic support can provide more comfort. Pain medications may cause nausea, you should typically eat light foods as you take your pain medications. Pain medications may also cause constipation. If you have difficulty with this, discuss with your doctor. Dressing / Incision Call your doctor if your incision/area has: Continuous Slow Oozing, Sudden Increased Bleeding, Increased Pain/ Swelling, Increased Redness and Foul Smelling Discharge Call your doctor if you observe: Fever of 101 or Higher Suture Line Care: Avoid Pulling/Pushing and Avoid Pinching/Bending Remove Dressing in: 2 days (Remove clear bandages in 2 days, remove Steri-Strips in 7 to 10 days.) Cleanse incision/area with: Soap & Water Follow Up Care Please Follow Up With: Ramon Ortega MD When: Please call to schedule 2 week follow up appointment. [phone] Test Results: Test results from this visit will be discussed in further detail at your follow- up appointment, if applicable. Discharge Plan Admission Attending Provider: Ramon Ortega Primary Care Provider: Finesse Braun Instructions Additional Instructions / Restrictions: Alternate ibuprofen and Tylenol for pain. Oxycodone for breakthrough pain. Discharge Orders/Prescriptions Prescriptions: New oxycodone 5 mg tablet 5 - 10 mg PO Q6H PRN (Reason: pain) 5 Days Qty: 10 0RF No Action citalopram 10 mg tablet 20 mg PO DAILY ascorbic acid (vitamin C) [Vitamin C] 500 mg Tablet 500 mg PO DAILY elderberry fruit 350 mg Capsule 350 mg PO DAILY Referrals / Follow Up: Finesse Braun MD [Primary Care Provider] - Disposition Disposition (needs filled in before D/C Order can be placed): Home, Self Care
[2022-12-14] MEDS: oxyCODONE 5 MG Tablet PO (11:10)
== END 2022-12-14 14:18 | disposition home or self-care (01) ==
LOC: SDC 05:56 → AC 05:56
PROVIDERS: PCP Family Medicine; Referring Provider Surgery; Visit Provider Surgery
PROC: 0YQ64ZZ Repair Left Inguinal Region, Percutaneous Endoscopic Approach (ICD-10-PCS; CPT 49650; principal; 2022-12-14 07:10)
DX: K40.90 Unilateral inguinal hernia, without obstruction or gangrene, not specified as recurrent (principal); G51.0 Bell's palsy
CPT/HCPCS: 49650; 00840; 93005; J7120; J2405

== ENCOUNTER 2024-03-17 05:25 | Day surgery (SDC) | payer OTHER, SELFPAY ==
--- NOTE | 2024-03-03 08:35 | EKG12_ITS ---
Test Reason : PREOP Blood Pressure : / mmHG Vent. Rate : 056 BPM Atrial Rate : 056 BPM P-R Int : 134 ms QRS Dur : 086 ms QT Int : 426 ms P-R-T Axes : 072 062 061 degrees QTc Int : 411 ms Sinus bradycardia Otherwise normal ECG Confirmed by Venancio Quiroz ([id number]), mapping editor BRONWYN BORJAS ([id number]) on 03/04/2024 7:21:12 AM Referred By: Maco Basilio Confirmed By:Venancio Quiroz
[2024-03-03 10:17] LABS: Absolute Lymphocyte Count 1.56 X10^3/uL (0.83-4.51); Absolute Neutrophil Count 2.7 X10^3/uL (2.0-7.7); Basophil# 0.02 X10^3/uL; Basophil% 0.4 % (0-1); Eosinophil# 0.09 X10^3/uL; Eosinophils% 1.8 % (0-5); Hematocrit 42.1 % (40-54); Hemoglobin 13.9 g/dL (13.0-16.5); Lymphocyte # 1.56 X10^3/ul (0.83-4.51); Lymphocyte % 31.9 % (19-41); Mean Corpuscular Hgb 29.6 pg (27.0-32.0); Mean Corpuscular Volume 89.8 fL (80-94); Mean Platelet Vol. 10.1 fl (6.2-12.0); Monocyte% 10.2 % (0-10); NRBC Flagged by Analyzer 0 % (0-5); Neutrophil # 2.71 X10^3/uL (2.7-7.7); Neutrophil % 55.5 % (47-70); Platelet Count 182 K/mm3 (150-450); RBC Distribution Width CV 13.8 % (11.6-14.6); RBC Distribution Width SD 45.1 fl (35.1-43.9); Red Blood Count 4.69 M/mm3 (4.6-6.2); White Blood Count 4.9 K/mm3 (4.4-11.0)
[2024-03-03 11:15] LABS: Magnesium 2.5 mg/dL (1.6-2.6)
[2024-03-03 11:40] LABS: Albumin, Serum 3.7 g/dL (3.2-5.0); Anion Gap 4 (5-15); BUN 23 mg/dL (7-18); BUN/Creat Ratio 24.4 RATIO (10-20); Chloride 109 mmol/L (98-107); Creatinine, Serum 0.94 mg/dL (0.70-1.30); EST Glomerular Filtration Rate 87 mL/min (>60); Est Glom Filt Rate - Afr Amer 105 mL/min (>60); Glucose 83 mg/dL (74-106); Potassium 4.1 mmol/L (3.5-5.1); Sodium Level 140 mmol/L (136-145)
--- NOTE | 2024-03-10 12:25 | PCM.HP.BLA ---
History and Physical History and Physical Patient Name: Venancio Puckett : 1965From:? CLIFF FELDMAN PA-C DATE OF PRE-OPERATIVE EXAM: 03/10/2024 DATE OF SURGERY:? 03/17/2024 SCHEDULED PROCEDURE:? Direct anterior right total hip arthroplasty HISTORY OF PRESENT ILLNESS: Preoperative history and physical exam was performed on March 10, 2024.? This is a 59-year-old male who has been having ongoing pain since 2020 with his right hip.? He is having progressively worsening symptoms in which she is getting groin pain.? Pain is been intermittent, aching, sharp and sore.? Pain is increased with walking.? Patient has difficulty putting on his socks and shoes.? He has also had to modify his normal routine secondary to the pain.? Patient denies any recent trauma or injury.? With activities he is unable to carry heavy objects due to stability concerns.? Patient does have start up pain.? Patient has attempted formal physical therapy and home exercises without relief.? He has tried [id number] medications without relief.? After failing conservative measures and discussing all treatment options with Dr. Maco Basilio, the patient does wish to proceed with a direct anterior right total hip arthroplasty.? Patient has obtain surgical clearance from the primary care provider Dr. Braun.? Patient denies past history of DVT or pulmonary embolism.? He has medical history pertinent for anxiety and Veliz's palsy.? There is been no recent fevers, chills or recent infections.? No chest pain or shortness of breath. REVIEW OF SYSTEMS: Review Of Systems: Constitutional: Denies change in appetite, fever and weight change. Cardiovasular: Denies chest pain, heart murmur and irregular heartbeat. Respiratory: Denies cough, pneumonia, shortness of breath, tuberculosis and wheezing. Gastrointestinal: Denies constipation, diarrhea, heartburn, nausea, rectal itching, bloody stools and vomiting. Genitourinary: Denies incontinence. Musculoskeletal: Reports gait disturbance, pain, trouble walking and weakness, but denies leg swelling. Skin: Denies Raynaud's, history of shingles and tattoo. Neurological: Reports numbness/tingling but denies ambulatory dysfunction, dizziness and tremor. Psychiatric: Reports anxiety, but denies insomnia and stress. Hematologic/Lymphatic: Denies anemia, bleeding/bruising tendency and past transfusion. Reviewed and updated. PAST MEDICAL HISTORY: Advance Care Plan: Other Directive, POA Other Directive, LIVING WILL Past Medical History: Medical Problems: Anxiety, Veliz's Palsy, Muscle Spasms Accidents: None Surgical Hx: L5-S1 (bilateral) Transforaminal Epidural Steroid Injection - (08/22/2022) Dr Isaiah Talley @ [facility] Hernia Repair - (12/14/2022) @ [facility] L5-S1 (bilateral) Transforaminal Epidural Steroid Injection - (02/20/2023) Dr Isaiah Talley @ [facility] Caudal Epidural Steroid Injection - (08/10/2023) Dr Isaiah Talley @ [facility] Anesthesia Complications: None Assistive Devices: Glasses Reviewed and updated. SOCIAL HISTORY: Social History: Marital: .Occupation: [employer].Work Status: Currently Working.Hand Dominance: Right-handed. Personal Habits:? Cigarette Use: Never Smoked Cigarettes.Smokeless Tobacco: Never Used Smokeless Tobacco.E-Cigarette Use: Never used.Alcohol: Occasionally.Drug Use: Denies Use.Enjoy Exercising: Exercises 1-3 x/month. Reviewed, no changes. VITALS: Ht: 71 Wt: 166lb Wt k.298 BMI: 23.1 BP: 118/70 Pulse: 60 Resp: 16 T: 97.8 T: 36.6C Pain Level: 7 O2SatR: 100 ALLERGIES: ALL Cillins MEDICATIONS: Oxycodone HCL 5 mg 1-2 tablets by mouth every 4 hours as needed, Meloxicam 7.5 mg 1 tablet by mouth twice a day, Ondansetron HCL 4 mg 1 table by mouth every 8 hours as needed nausea., Famotidine 20 mg 1 tablet by mouth once daily, Citalopram Hydrobromide 40 mg 1po qday, Cyclobenzaprine HCL 5 mg one tab by mouth three times a day as needed, Vitamin C 500 mg 1 by mouth every day, Vitamin D (Ergocalciferol) 1.25 MG (36935 Ut) PRE-OP EXAM: General appearance:NORMAL? Other: Eyes: Conjunctivae and lids: NORMAL? Pupils: ERR Ears, Nose, Mouth, and Throat: NORMAL? Other: Inspection of lips, teeth and gums: NORMAL?? Other: Neck: Examination of neck: no masses noted. Respiratory: Assessment of respiratory effort: NORMAL?? Other: ? Auscultation of lungs: clear to auscultation no wheezes, rhonchi or rales. Cardiovascular:? Auscultation of heart: regular rate and rhythm, no murmurs, gallops or rubs. PHYSICAL EXAMINATION: On exam patient walks with a slight limping gait secondary to the right hip pain.? He has tenderness to palpation over the lateral hip.? Range of motion approximately 70 forward flexion, internal rotation to neutral, external rotation 12.? Pain is reproduced with all range of motion.? Sensation intact to light touch. IMAGING STUDIES: Previous x-rays of the right hip reveal joint space narrowing, subchondral sclerosis, osteophyte formation consistent with severe stage IV bone on bone erosive osteoarthritis IMPRESSION: 1.? Severe right hip osteoarthritis 2.? Anxiety/depression 3.? Veliz's palsy PLAN: Dr. Maco Basilio did discuss and review with the patient all treatment options including surgical versus nonsurgical options.? Patient does wish to proceed with the above-stated procedure.? Potential risks, benefits, and complications of the procedure were discussed in detail including but not limited to , infection, nerve and blood vessel damage, persistent pain, numbness, tingling, paresthesias, blood clot, pulmonary embolism, and requirement for possible further surgery.? The patient expressed full understanding and has no further questions for the doctor.? Patient does agree to proceed with the above-stated procedure and has signed the surgery consent form. POST-OP MEDICATION PLAN: Pain Medications: At the preoperative visit patient was given the following medications: Famotidine, meloxicam, Zofran, and oxycodone.? He was instructed to orange picking supervisor aspirin 81 mg, extra strength Tylenol, and senna.? He does have a walker that he will bring to the hospital. DVT Prophylaxis:? Aspirin 81 mg twice daily for 4 weeks postoperatively.? Denies past history of DVT or pulmonary embolism This dictation was created using voice recognition software. Phonetic and/or grammatical errors may exist. ___? I have re-examined the patient.? There are no clinical changes since date of exam. ___? See progress notes for changes. ___? Dictated on admission Date: ? Time: Signature:
[2024-03-17] VITALS (12 sets, daily range): BP systolic 114–138; BP diastolic 56–84; PULSE 55–67; RESP 14–18; TEMP 36.2–36.9; O2SAT 98–100; BMI 22.8
[2024-03-17] MEDS: Acetaminophen 500 MG Tablet 1000 MG PO (06:06)
[2024-03-17] MEDS: Celecoxib 200 MG Capsule 400 MG PO (06:07)
[2024-03-17] MEDS: Gabapentin 600 MG Tablet PO (06:07)
[2024-03-17] MEDS: Lactated Ringers 1,000 ML 999 ML IV ×2 (06:15→11:32)
[2024-03-17] MEDS: Magnesium 1 GM over 15 mins IV (06:16)
[2024-03-17] MEDS: Lactated Ringers 1,000 ML 15 ML IV (06:16)
--- NOTE | 2024-03-17 06:49 | PCM.PRE.AN2 ---
ASA Classification* ASA Classification ASA Classification: 2 Assessment & Plan Anesthesia* Anesthesia Assessment Anesthesia Assessment: Discussed sedation and/or anesthesia options, risks, benefits, and alternatives with patient/parents/legal guardian/POA. Questions invited. The patient/parents/legal guardian/POA seems to understand and agrees to proceed with anesthesia plan. Reviewed the physical assessment, medical history, allergy history and patient home medications list prior to surgery/procedure/anesthetic and documented any changes. Performed airway and anesthesia risk assessments. Anesthesia Type Anesthesia Type: Spinal Anesthesia Focused Assessment* Temperature: 98.4 F Pulse Rate: 67 Blood Pressure: 138/84 Respiratory Rate: 18 Pulse Ox: 100 Airway Assessment Mouth opens: >3 cm Mallampati Score: II Focused Labs Anesthesia Preop lab: CBC WBC 4.9 K/mm3 (4.4-11.0) 03/03/24 09:13 RBC 4.69 M/mm3 (4.6-6.2) 03/03/24 09:13 Hgb 13.9 g/dL (13.0-16.5) 03/03/24 09:13 Hct 42.1 % (40-54) 03/03/24 09:13 Plt Count 182 K/mm3 (150-450) 03/03/24 09:13 CHEMISTRY Potassium 4.1 mmol/L (3.5-5.1) 03/03/24 09:13 Sodium 140 mmol/L (136-145) 03/03/24 09:13 Magnesium 2.5 mg/dL (1.6-2.6) 03/03/24 09:13 BUN 23 mg/dL (7-18) H 03/03/24 09:13 Creatinine 0.94 mg/dL (0.70-1.30) 03/03/24 09:13 Glucose 83 mg/dL (74-106) 03/03/24 09:13 COAG Pre-Assessment Diagnosis/Proposed Procedure Planned Operative Procedure(s): ANTERIOR RIGHT TOTAL HIP ARTHROPLASTY Anesthesia History Anesthesia History - auto body estimator: Anesthesia History - auto body estimator Hx Hospitalization No 02/22/24 09:13 Any Problems With Anesthesia No 02/22/24 09:13 Cholinesterase deficiency No 02/22/24 09:13 You/Your Family Experience No 02/22/24 09:13 fever (hyperthermia) with Relationship Recent Exposure to Contagious No 03/17/24 06:01 Disease Does patient have nerve No 02/22/24 09:13 stimulator Patient instructed to have device shut off --Does patient have Pacemaker No 03/17/24 06:03 or ICD? When Was Last Pacemaker Check QUESTION #4 FULL TEXT: You/Your Family Experience fever (hyperthermia) with Anesthesia Last Oral Intake Last Oral intake: Last Oral Intake NPO since 03:30 03/17/24 06:03 Meds taken in AM with sips of Yes 03/17/24 06:03 water? Meds patient instructed to take am of surgery PONV PONV - auto body estimator: PONV - auto body estimator Female No 02/22/24 09:13 HX of Motion Sickness No 02/22/24 09:13 HX of N/V After Surgery No 02/22/24 09:13 Non-Smoker Yes 02/22/24 09:13 Duration of Surgery greater Yes 02/22/24 09:13 than 60 minutes Number of Risk Factors 2 02/22/24 09:13 PONV Score Moderate Risk 02/22/24 09:13 Height & Weight Height & Weight: Anesthesia: Height & Weight Height 5 ft 11 in 03/17/24 06:03 Weight: 74.48 kg 03/17/24 06:03 Body Mass Index (BMI) 22.8 03/17/24 06:03 Respiratory Assessment Respiratory Assessment - auto body estimator: Respiratory Tract Infection Hx - auto body estimator Hx Respiratory Tract Infection No 02/22/24 09:13 STOP Sleep Apnea STOP Sleep Apnea - auto body estimator: STOP Sleep Apnea - auto body estimator Hx Hypertension No 02/22/24 09:13 Hx Sleep Apnea No 02/22/24 09:13 CPAP BIPAP Do you snore loudly (louder Yes 02/22/24 09:13 than talking or can be heard Do you often feel tired/ No 02/22/24 09:13 fatigued/ sleepy during daytime? Has anyone observed you stop No 02/22/24 09:13 breathing during sleep? STOP Results Negative 02/22/24 09:13 QUESTION #5 FULL TEXT : Do you snore loudly (louder than talking or can be heard through closed doors)? Tobacco Use History Tobacco Use History - auto body estimator: Tobacco Use History - auto body estimator Tobacco Use Smoking Status Never smoker 02/22/24 09:13 Hx Tobacco Use No 02/22/24 09:13 Years Smoking Packs Smoked per Day Smoking Cessation Date was within the last 15 years Hx Smoking Cessation Date Hx Smoking Cessation Counseling Hematologic Medial History Hematologic Hx - auto body estimator: Hematologic Medical Hx - safety council director Hx of Blood Transfusion No 02/22/24 09:13 Hx of Transfusion in last 3 No 02/22/24 09:13 Months Date of Last Transfusion (if within last 3 months) Ever experience any problems No 02/22/24 09:13 with transfusion(s)? Specify any problems Hx of Preganancy in last 3 N/A 02/22/24 09:13 Months Nurse Filling Out Transfusion DSCHRIBER 02/22/24 09:13 & Questions: Date: 02/22/24 02/22/24 09:13 Time: 09:15 02/22/24 09:13 Patient unable to answer at this time (ie. confused, unrespo /Reproduction History /Reproductive History - auto body estimator: /Reproductive Hx- auto body estimator Hx Now No 02/22/24 09:13 Gestational Age (in weeks): EDC: Hx Hx Para Hx Section SAB No 02/22/24 09:13 Active Medications Active Medications: Current Medications Generic Name Dose Route Start Last Admin Trade Name Lizet PRN Reason Stop Dose Admin Acetaminophen 1,000 mg 03/17/24 07:30 03/17/24 06:06 Acetaminophen 500 Mg Tablet PO 03/17/24 07:31 1,000 mg X1 ONE Administration Acetaminophen 1,000 mg 03/17/24 14:00 Acetaminophen 500 Mg Tablet PO Q8 [facility] Celecoxib 400 mg 03/17/24 07:30 03/17/24 06:07 Celecoxib 200 Mg Capsule PO 03/17/24 07:31 400 mg X1 ONE Administration Sodium Chloride 77.4 ml/ 0 ml 03/17/24 07:30 Ropivacaine 200 mg/ OPERA.SITE 03/17/24 07:31 Epinephrine HCl 0.6 mg/ X1 ONE Ketorolac Tromethamine 30 mg/ Morphine Sulfate 5 mg Dexamethasone Sodium Phosphate 10 mg 03/17/24 07:30 Dexamethasone 10 Mg/Ml Vial IV 03/17/24 07:31 X1 ONE Gabapentin 600 mg 03/17/24 07:30 03/17/24 06:07 Gabapentin 600 Mg Tablet PO 03/17/24 07:31 600 mg X1 ONE Administration Lactated Ringer's 1,000 mls @ 999 mls/hr 03/17/24 07:30 03/17/24 06:15 IV 03/17/24 08:30 999 mls/hr .Q1H1M KERRY Administration Cefazolin Sodium 2 gm/ Sodium 110 mls @ 150 mls/hr 03/17/24 07:30 Chloride IV 03/17/24 08:13 PREOP ONE Tranexamic Acid 1,000 mg/ 110 mls @ 660 mls/hr 03/17/24 07:30 Sodium Chloride IV 03/17/24 07:39 X1 ONE Tranexamic Acid 1,000 mg/ 110 mls @ 660 mls/hr 03/17/24 08:30 Sodium Chloride IV 03/17/24 08:39 X1 ONE Lactated Ringer's 1,000 mls @ 999 mls/hr 03/17/24 08:30 IV 03/17/24 09:30 .Q1H1M KERRY Lactated Ringer's 1,000 mls @ 125 mls/hr 03/17/24 09:30 IV 03/17/24 17:29 .Q8H KERRY Magnesium Sulfate 1 gm/ 102 mls @ 408 mls/hr 03/17/24 07:30 03/17/24 06:16 Dextrose IV 03/17/24 07:44 408 mls/hr X1 ONE Administration Lactated Ringer's 1,000 mls @ 15 mls/hr 03/17/24 05:45 03/17/24 06:16 IV 15 mls/hr .Q48H KERRY Administration Cefazolin Sodium 1 gm in 50 mls @ 150 mls/hr 03/17/24 06:39 IV 03/17/24 06:58 X1 ONE Insulin Human Lispro 1 - 6 unit 03/17/24 07:30 Insulin Lispro 100 Unit/Ml Insuln.Pen SC 03/17/24 13:30 Q4H PRN PRN BG>/= 180, SEE PROTOCOL Protocol Ketorolac Tromethamine 30 mg 03/17/24 06:38 Ketorolac 30 Mg/Ml Syringe IV 03/22/24 06:39 X1 PRN Pain Score 4-10 Morphine Sulfate 2 - 4 mg 03/17/24 06:38 Morphine 2 Mg/Ml Syringe IV Q2H PRN PRN Pain Score 6-10 Ondansetron HCl 4 mg 03/17/24 06:39 Ondansetron 4 Mg/2 Ml Vial IV Q8H PRN PRN NAUSEA Oxycodone HCl 5 - 10 mg 03/17/24 06:38 Oxycodone 5 Mg Tablet PO Q4H PRN PRN Pain Score 4-10 Promethazine HCl 12.5 mg 03/17/24 06:39 Promethazine 25 Mg/Ml Syringe IM Q6H PRN PRN NAUSEA/VOMITING PFSH Medical History Pain Injury of back Cancer Wears glasses Anxiety Alcohol use Arthritis Peripheral neuropathy Back pain Veliz's palsy Non-smoker History of pain when walking History of stress test Inguinal hernia Home Medications ?Medication ?Instructions ?Recorded ?Last Taken ?Type ascorbic acid (vitamin C) 500 mg 500 mg PO DAILY 11/02/22 03/11/24 History tablet (Vitamin C) cholecalciferol (vitamin D3) 25 25 mcg PO DAILY 02/22/24 03/16/24 History mcg (1,000 unit) capsule (Vitamin D3) citalopram 40 mg tablet 40 mg PO DAILY 02/22/24 03/17/24 03:30 History Allergy/AdvReac Type Severity Reaction Status Date / Time amoxicillin Allergy Other Verified 03/17/24 06:00 Penicillins (PCN) Allergy family Verified 03/17/24 06:00 history Family History Mother Diabetes Hypertension Surgical History (Updated 02/22/24 @ 09:29 by Paola Curtis) S/P inguinal hernia repair Hx of colonoscopy History of uvulectomy Social History Smoking Status: Never smoker Review of Systems (Anesthesia) ROS Narrative System reviewed and no additional complaints, except as documented.
--- NOTE | 2024-03-17 07:17 | RAD_ITS ---
STUDY: X-RAY - PELVIS AND RIGHT HIP REASON FOR EXAM: Male, 59 years old. PAIN TECHNIQUE: 3 fluoroscopic spot films views of the pelvis and right hip. COMPARISON: Right hip radiographs dated 08/17/2023. FINDINGS: There is a non-specific bowel gas pattern. There are multiple small calcified phleboliths in the pelvis. Normal bilateral superior and inferior pubic rami. Normal pubic symphysis. Normal bilateral ischial tuberosities. There is new placement of a right hip arthroplasty. There is no periprosthetic fracture. There is adjacent soft tissue gas, compatible with current surgery. RAD/Hip 1 view with Pelvis IMPRESSION: New right hip arthroplasty placement, with no periprosthetic fracture. Electronically Signed: Luciano Chen MD at 8:26 EDT ,
[2024-03-17] MEDS: Dextrose 5%-Lactated Ringers 1,000 ML 15 ML IV (07:21)
[2024-03-17] MEDS: Cefazolin 2 GM in 0.9% Normal Saline (100mL Bag) 100 ML IV (07:25)
[2024-03-17] MEDS: dexAMETHasone 10 MG/ML Vial IV (07:30)
--- NOTE | 2024-03-17 07:30 | HIP_PTH ---
PATIENT: TAWNY WHELAN LOC: [facility] – [place] U#:[id number] AGE/SX: 59/M ROOM: RE03/17/[address]: Dr. Maco Basilio MD : 1965 BED: DIS: 03/17/2024 SPEC #: [id number] RECD: 03/17/24 12:34 STATUS: EDIL STEVE #: [id number] FARZAD: 03/17/24 07:[address]: Maco Basilio DEPT: SURGICAL PATHOLOGY RECD BY: Radha Azar ENTERED: 03/17/24 13:44 SP TYPE: TOTAL HIP OTHR DR: Dr. Finesse Braun MD Tissues: Hip, NOS Procedures: Decalcification bone/plaque Surgery Specimen Level IV HEADER OPERATION: Anterior right total hip arthroplasty PRE-OP DIAGNOSIS: Severe right hip osteoarthritis TISSUE SUBMITTED: Femoral head right hip MICROSCOPIC DIAGNOSIS Right hip bone and soft tissue, total hip replacement/resection: Femoral head with degenerative osteoarthritic changes. SJ: 03/20/2024 MICROSCOPIC DESCRIPTION Slides are reviewed. GROSS DESCRIPTION Received is one container labeled with the patient's name and designated bone and soft tissue right hip. The specimen consists of a betancur femoral head measuring 5.0 x 5.0 x 4.5 cm. Also present in the container is a portion of bone consistent with femoral neck measuring 4.0 x 2.5 x 1.0cm. The articular surface displays prominent osteophyte formation, eburnation and bone erosion. Also present in the specimen container are multiple irregular fragments of bone reamings and pink-yellow soft tissue measuring in aggregate 8.0 x 8.0 x 2.0 cm. Also present in the container are multiple pieces of detached bone measuring in aggregate 4.0 x 4.0 x 1.0cm. Color Tester sections are submitted in two cassettes as follows: 1 - bone reaming, 2 - femoral head after decalcification. / ASHLYN/ 03/17/2024 TC:5 CPT: 17650, 93071
[2024-03-17] MEDS: TXA 1000mg in NS100 100ml (IVPB at Incision) 660 MG IV (07:34)
--- NOTE | 2024-03-17 08:31 | PCM.OPRPT ---
Report of Operation Date of Procedure: 03/17/24 Pre-Operative Diagnosis: Left hip primary osteoarthritis Post-Operative Diagnosis: Left hip primary osteoarthritis Surgery/Procedure Performed:: Left minimally invasive direct anterior hip replacement Description of Surgical Findings:: Stable hip with equal leg lengths Surgeon: Maco Basilio social studies teacher: Dk Cee Type of Anesthesia: Spinal Anesthesiologist: Micah Seo Special Medications: 2 g Ancef, 1 g TXA at incision, 1 g TXA closure, 10 mg Decadron, joint cocktail (5 mg Duramorph, 30 mL of 0.5% Ropivicaine, 1000 units of epinephrine, 30 mg of Toradol) Specimen's removed: Bony cuts Estimated Blood Loss (mL): 300 Fluids Replaced: 1400 mL crystalloid Description of Procedure: Components used: 1. Accolade 2 Columbia femoral stem size 8 127? 2. Columbia trident 2 acetabular shell size 56 mm 3. Kalra X3 polyethylene F 4. Columbia Biolox delta 36mm, -2.5mm femoral head Brief history operative indications: 59 yo M who failed conservative measures for their hip osteoarthritis. X-rays were consistent with osteoarthritis including joint space narrowing, osteophyte formation and subchondral cysts. Total hip replacement was discussed with the patient with risks and benefits including but not limited to blood loss, DVTs, PEs, neurovascular damage, dislocation, general risks of anesthesia including loss of life. Patient demonstrated an understanding medical clearance is obtained the patient was consented for surgery. Procedure: On the date of procedure the patient's L hip was marked in the preoperative area. Patient was then taken back to the operating room where anesthesia assumed control of the C-spine and airway and administered anesthetic. Patient was transferred to the operating table and placed in the supine position. The hips were placed at the break of the bed and a sacral bump was placed. L The lower extremity was then prepped out in a sterile fashion using chlorhexidine while the surgeon scrubbed. The PA was vital in the positioning of the patient. Upon reentering the room the left lower extremity was draped in the standard orthopedic fashion and the incision was marked. A timeout was called and everyone agreed upon the side, the site, the procedure be performed, antibody given, and patient's identity. At this time incision was made through skin, subcutaneous tissue, and fat down to fascia. The fascia was then incised and the TFL was retracted laterally. A retractor was placed on the lateral border of the femoral neck. Attention was directed to the inferior portion of the approach and all crossing vessels were identified and appropriately coagulated. A retractor was then placed on the medial portion of the femoral neck. The anterior capsule was then cleared of all soft tissue and then H shaped capsulotomy was made. The retractors were then placed inside the capsule. The femoral neck was identified and a cleanup cut was made. At this time a power corkscrew was used to remove the femoral head. Attention was then turned toward the acetabulum where the soft tissues were appropriately retracted and the acetabulum was sequentially reamed to 56 mm. A 56 mm cup was then selected and impacted into place. Acetabular liner was impacted into place and locking mechanism was verified. The position of the acetabular cup was then verified under live fluoroscopy. Attention was then turned to the femur. Soft tissue releases on the medial and lateral femoral neck were appropriately done, the leg was externally rotated and lateralized. A Miles retractor was placed medially and proximally to the greater trochanter this allowed appropriate visualization and exposure of the femoral canal. Rongeour was then used to remove excess lateral bone. A canal finder and entry broach were used to open the proximal canal. Once we verified we were down the femoral canal we subsequently broached up to a size 8 femur. The appropriate neck was placed in the previously selected head was trialed with a -2.5 mm neck. Traction was pulled and the hip was reduced with internal rotation. Once it was appropriately reduced and stability was checked. There was minimal shuck, equal leg lengths and appropriate stability with hyperextension and external rotation as well as with 90? flexion and internal rotation. Fluoroscopy was then also used to verify the position of the components and leg lengths using the contralateral side for comparison. The trial components were then dislocated the proximal femur was again exposed and the components were removed from the wound. The final components were verified and opened. The wound was copiously irrigated out with normal saline. The acetabulum was checked for any residual debris. The final components were placed and impacted. Traction and internal rotation were again used to reduce the hip. After adequate reduction the hip remained stable with appropriate leg lengths. The final components were once again checked with live fluoroscopy and were found to be satisfactory. The wound was then copiously irrigated with normal saline once more, and hemostasis was obtained. Closure was then done using #1 Vicryl runner to close the fascia. A 2-0 vicryl interuppted sutures were used to close the subcutaneous skin. A 3-0 Monocryl and Steri-Strips were used for final skin closure. A Silverlon dressing was placed. Patient was awakened by anesthesia and [facility] Patient was then transferred to the PACU for recovery. During the course of the procedure the physician substation supervisor (PE) played a vital role. Their intimate knowledge of my steps in the procedure aided in safe and expedient completion of the procedure. The PE played a vital rolls in positioning particularly in obtaining the appropriate positioning of the sacral bump. The PE was also vital in the retraction of soft tissues during the exposure and especially the femoral work as this is a vital part of the procedure to prevent complications and fractures. The PE was also vital and protecting soft tissues during times of bony cuts and reaming. He also played a vital role in closure with my direct supervision. The PE was also important during reduction and dislocation of the joint and trials intraoperatively. Postoperative plan: Patient will get 24 hours postop antibiotics. Patient will get in-house physical therapy and will be weight-bear as tolerated. Patient will follow up in office in 2 weeks for a wound check and x-rays. Aspirin 81 mg twice daily. Complications No intraoperative complications Admit VTE Documentation VTE Present on Admission: No VTE Mechan Device Prophylaxis: SCD's and Thigh High DESTINY Hose VTE Pharm Prophylaxis ordered?: Yes
[2024-03-17] MEDS: JPS (Morphine 10mg/ml) OPERA.SITE (08:32)
[2024-03-17] MEDS: TXA 1000mg in NS100 100ml (IVPB at Closure) 660 MG IV (08:32)
--- NOTE | 2024-03-17 09:11 | PCM.POST.ANE ---
Anesthesia: Postop Eval I Current Vital Signs Temperature: 97.6 F Pulse Rate: 66 Blood Pressure: 130/61 Respiratory Rate: 18 Pulse Ox: 99 Oxygen Delivery Method: Room Air Assessment Airway patent: Yes Spontaneous unlabored respirations: Yes Mental status: Awake and Calm nausea: No Vomiting: No Anesthesia Complication: No Fluid Hydration Crystalloid volume administer (ml): 1,400 Total IV fluid infused: 1,400 Progress Note Anesthesia document: Postop Eval 1 completed: Yes
--- NOTE | 2024-03-17 09:15 | RAD_ITS ---
STUDY: X-RAY - PELVIS AND RIGHT HIP REASON FOR EXAM: Male, 59 years old. leta -- in PACU TECHNIQUE: 2 views of the pelvis and hip. COMPARISON: Comparison is made with prior study dated August 17, 2023. FINDINGS: The patient is status post right total hip replacement. There is good alignment. Postoperative soft tissue changes. RAD/Hip Min 2 Views (Portable) IMPRESSION: Status post right total hip replacement. There is good alignment. Postoperative soft tissue changes. Electronically Signed: Rip Krueger MD at 8:26 EDT ,
[2024-03-17] MEDS: oxyCODONE 5 MG Tablet PO (11:28)
[2024-03-17] MEDS: Cefazolin 1 GM/50 ML BAG IV (12:04)
[2024-03-17] MEDS: Tamsulosin HCl 0.4 MG Capsule PO (14:31)
--- NOTE | 2024-03-17 14:56 | POSTOPAN2_ITS ---
Anesthesia Postop Eval I Sum Postop Eval Completion status Anesthesia document: Postop Eval 1 completed: Yes Anesthesia Postop Eval I Summary Anesthesia Postop Eval I Summary: Anesthesia Postop Eval I: Assessment Summary Airway patent Yes 03/17/24 09:12 [email or web address] Spontaneous unlabored Yes 03/17/24 09:12 RADIOLOGIC [email or web address].[email or web address] respirations Mental status Awake,Calm 03/17/24 09:12 [email or web address].[email or web address] nausea No 03/17/24 09:12 RADIOLOGIC [email or web address].[email or web address] Vomiting No 03/17/24 09:12 [facility] Anesthesia Postop Eval I: Fluid Summary Crystalloid volume administer 1,400 03/17/24 09:12 RADIOLOGIC [email or web address].SCHR (ml) Colloids volume administered ( ml) Blood Product volume administered (ml) Total IV fluid infused 1,400 03/17/24 09:12 [facility] Anesthesia Postop Eval I: Summary Notes Anesthesia Complication No 03/17/24 09:12 [facility] Anesthesia Complication Comment: Post-operative progress note Anesthesia: Postop Eval II Evaluation Mental status: Awake and Calm Pain Level: 0 nausea: No Vomiting: No Complications Anesthesia Complication: No
--- NOTE | 2024-03-17 14:56 | PCM.POSTANE2 ---
Anesthesia Postop Eval I Sum Postop Eval Completion status Anesthesia document: Postop Eval 1 completed: Yes Anesthesia Postop Eval I Summary Anesthesia Postop Eval I Summary: Anesthesia Postop Eval I: Assessment Summary Airway patent Yes 03/17/24 09:12 [facility] [email or web address].[email or web address] Spontaneous unlabored Yes 03/17/24 09:12 [facility] [email or web address].[email or web address] respirations Mental status Awake,Calm 03/17/24 09:12 [facility] [email or web address].[facility] nausea No 03/17/24 09:12 [facility] [email or web address].[facility] Vomiting No 03/17/24 09:12 [facility] Anest[facility] Postop Eval I: Fluid Summary Crystalloid volume administer 1,400 03/17/24 09:12 [facility] [email or web address].[facility] (ml) Colloids volume administered ( ml) Blood Product volume administered (ml) Total IV fluid infused 1,400 03/17/24 09:12 [facility] Anesthesia Postop Eval I: Summary Notes Anesthesia Complication No 03/17/24 09:12 [facility] Anesthesia Complication Comment: Post-operative progress note Anesthesia: Postop Eval II Evaluation Mental status: Awake and Calm Pain Level: 0 nausea: No Vomiting: No Complications Anesthesia Complication: No
[2024-03-17 15:16] LABS: Bedside Glucose 68 mg/dL (74-106)
[2024-03-17 15:17] LABS: Bedside Glucose 66 mg/dL (74-106)
== END 2024-03-17 14:50 | disposition home or self-care (01) ==
LOC: SDC 05:25 → AC 05:27
PROVIDERS: Anesthesiology; PCP Family Medicine; Referring Provider Specialist; Visit Provider Specialist
PROC: (CPT 27284; principal; 2024-03-17 07:05)
DX: M16.0 Bilateral primary osteoarthritis of hip (principal); G51.0 Bell's palsy; F41.9 Anxiety disorder, unspecified; F32.A Depression, unspecified; Z79.899 Other long term (current) drug therapy
CPT/HCPCS: 27130; 01214; 36415; 73501; 73502; 76000; 80048; 82040; 82962; 83735; 85025; 87081; 88305; 88311; 93005; 97162; C1776; J7120; J3475